=== PATIENT | female | born 1980 ===

== ENCOUNTER 2025-03-09 20:05 | Emergency (ER) | payer OTHER, SELFPAY ==
[2025-03-09 20:12] VITALS: BP 153/94; PULSE 103; RESP 20; TEMP 35.9; O2SAT 98
[2025-03-09 20:16] VITALS: BP 153/94; PULSE 103; RESP 20; TEMP 35.9; O2SAT 98
--- NOTE | 2025-03-09 20:30 | DI.RAD_ITS ---
Exam(s) XR HAND LT COMPLETE EXAM: XR HAND LT COMPLETE CLINICAL HISTORY: dog bites. TECHNIQUE: 2D digital imaging was performed of the left hand. Three views were obtained. AP, lateral and oblique views were obtained. COMPARISON: No exams were available for comparison FINDINGS: BONES: No acute fracture is present. No bony destructive lesion is seen. JOINTS: No dislocation present. SOFT TISSUE: There are no radiopaque foreign bodies. There is soft tissue laceration between the 1st and 2nd metacarpals. There is a small amount of subcutaneous gas in this region. IMPRESSION: 1. No acute fracture, dislocation or radiopaque foreign body. 2. The preliminary [facility] report was reviewed. DATA REPOSITORY: RADIATION DOSE DELIVERED:
--- NOTE | 2025-03-09 20:30 | DI.RAD_ITS ---
Exam(s) XR HAND RT COMPLETE EXAM: XR HAND RT COMPLETE CLINICAL HISTORY: dog bites. TECHNIQUE: 2D digital imaging was performed of the right hand. Three images were obtained. AP, lateral and oblique views were obtained. COMPARISON: CR,XR XR HAND LT COMPLETE from 03/09/2025 FINDINGS: BONES: No acute fracture is present. No bony destructive lesion is seen. Note is made of an amputation of the distal aspect of the distal phalanx of the 2nd finger. JOINTS: No dislocation present. SOFT TISSUE: No radiopaque foreign bodies are seen. IMPRESSION: 1. There is an amputation of this distal aspect of the distal phalanx of the 2nd finger. 2. There is no other osseous abnormality. 3. There are no radiopaque foreign bodies. 4. The preliminary [facility] report was reviewed. DATA REPOSITORY: RADIATION DOSE DELIVERED:
--- NOTE | 2025-03-09 22:11 | DI.[facility]_ITS ---
PROCEDURE INFORMATION: Exam: XR Left Hand Exam date and time: 03/09/2025 8:49 PM Age: 44 years old Clinical indication: Injury or trauma; Other: Animal bite; Bilateral; Injury date: 03/09/25; Injury details: Dog bite to hands TECHNIQUE: Imaging protocol: Radiologic exam of the left hand. Views: 3 or more views. COMPARISON: No relevant prior studies available. FINDINGS: Bones/joints: No acute fracture or dislocation. No suspicious bony lesions. Soft tissues: Subcutaneous gas is present within the soft tissues overlying the thenar eminence. Soft tissue swelling is noted at the 2nd digit. No unexpected radiopaque foreign bodies. IMPRESSION: Subcutaneous gas and soft tissue swelling without underlying bony abnormality or unexpected radiopaque foreign body. Dictated and Authenticated by: Lu Dorsey MD. Orderin Leonarda Hyde MD
--- NOTE | 2025-03-09 22:12 | DI.[facility]_ITS ---
PROCEDURE INFORMATION: Exam: XR Right Hand Exam date and time: 03/09/2025 8:52 PM Age: 44 years old Clinical indication: Injury or trauma; Bilateral; Injury date: 03/09/25; Injury details: Dog bites on hand, 2nd finger tip TECHNIQUE: Imaging protocol: Radiologic exam of the right hand. Views: 3 or more views. COMPARISON: No relevant prior studies available. FINDINGS: Bones/joints: There is amputation of the distal aspect of the 2nd digit including the distal half of the distal 2nd phalanx. No other bony abnormalities. Soft tissues: No unexpected radiopaque foreign bodies. IMPRESSION: Amputation of the distal aspect of the 2nd digit as above. Dictated and Authenticated by: Lu Dorsey MD. Orderin Leonarda Hyde MD
[2025-03-09] MEDS: Rabies vaccine (PCEC)/PF 2.5 UNITS/ML VIAL IM (22:27)
[2025-03-09] MEDS: Rabies Immune Globulin 300 UNIT/ML VIAL 2250 UNIT IM (22:27)
[2025-03-09] MEDS: Amoxicillin 875/Clav. 125 TAB PO (22:27)
[2025-03-09] MEDS: Bupivacaine 0.5% Pres-Free 30 ML VIAL IJ (22:27)
--- NOTE | 2025-03-09 23:48 | ED.GENADUL_ITS ---
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, Dog bite, Dog bite of multiple sites Primary Care Provider: [place],Local ED Provider: Andrew Gregory Home Meds and New Rx's Prescriptions: New amoxicillin-pot clavulanate 875-125 mg tablet 1 tab PO BID Qty: 20 0RF ibuprofen 600 mg tablet 600 mg PO Q8H PRNQty: 15 0RF amoxicillin-pot clavulanate 875-125 mg tablet 1 tab PO BID 10 Days Qty: 20 0RF Continued metformin 750 mg tablet extended release 24 hr 750 mg PO DAILY losartan 50 mg tablet 50 mg PO DAILY simvastatin 20 mg tablet 20 mg PO DAILY norgestimate-ethinyl estradiol 0.18/0.215/0.25 mg-0.035mg (28) tablet 1 tab PO DAILY Rybelsus 14 mg tablet 14 mg PO DAILY Discharge Instructions Instructions: Animal and human bites, Amputation of the Finger or Fingertip (DC) Additional Instructions: Take the antibiotic every 12 hours as prescribed You received a tetanus vaccine of rabies vaccine today your next rabies vaccine will be on 12 March, 16 March, and 23 March, these will be scheduled through our infusion clinic Wash with soap and water. Please change the bandaging every 24 hours. You will need to follow-up with hand surgery. We we will request [facility] reach out to you for orthopedic hand follow-up. If you notice any worsening of your symptoms, or any new symptoms such as redness, drainage, vomiting, diarrhea, fever, chills, shortness of breath, chest pain, numbness, weakness, or fainting , please return immediately to the emergency department for reevaluation. Please follow up with your primary care provider as soon as possible for reassessment and reevaluation. As always, it was a pleasure participating in your medical care today. Stand Alone Forms: Portal Information Discharge Data Discharge Date/Time-TO BE ENTERED AT DEPARTURE: 03/10/25 01:49 HPI General Date/Time Provider Initiated Documentation: 03/09/25 20:24 . HPI Narrative: This 44-year-old female presents with report of bilateral hand injuries right greater than left after breaking up a dog fight. She states that a dog attacked her dog while she was walking. The dog bit the tip off of her right finger with multiple puncture wounds to bilateral hands. This happened just prior to ar rival. Unsure as to last tetanus shot. Unsure as to the vaccine history of the offending dog. There was no odor in the area. Related Data Home Medications ?Medication ?Instructions ?Recorded ?Confirmed amoxicillin 875 mg-potassium 1 tab PO BID #20 tabs clavulanate 125 mg tablet ibuprofen 600 mg tablet 600 mg PO Q8H PRN #15 tabs 1 05/10/24 losartan 50 mg tablet 50 mg PO DAILY 03/09/2502/18 metformin 750 mg tablet,extended 750 mg PO DAILY 03/0903/09/25 release 24 hr norgestimate-ethinyl estradiol 1 tab PO DAILY 03/09/25 03/09/25 0.18mg/0.215mg/0.25mg-0.035mg(28)tablet semaglutide 14 mg tablet (Rybelsus) 14 mg PO DAILY 03/09/25 simvastatin 20 mg tablet 20 mg PO DAILY 03/09/2502/18 amoxicillin 875 mg-potassium 1 tab PO BID 10 days #20 tabs 03/10/25 clavulanate 125 mg tablet Previous Rx's ?Medication ?Instructions ?Recorded amoxicillin 875 mg-potassium 1 tab PO BID #20 tabs clavulanate 125 mg tablet ibuprofen 600 mg tablet 600 mg PO Q8H PRN #15 tabs 1 05/10/24 amoxicillin 875 mg-potassium 1 tab PO BID 10 days #20 tabs 03/10/25 clavulanate 125 mg tablet Allergies Allergy/AdvReac Type Severity Reaction Status Date / Time No Known Allergies Allergy Unverified 03/09/25 20:37 General Stated Complaint: AnimalBite SAY: 3 Exam Narrative Exam Narrative: Alert and oriented 44-year-old female with amputation to right second digit approximately 5 mm distal to the DIP joint distal tip of phalanx visualized, macerated tissue sensation intact proximally range of motion intact with bleeding multiple puncture wounds, right hand with puncture wound to the webspace between the 1st and 2nd digits multiple small puncture wounds sensation intact and strength intact Course Vital Signs Vital signs: Vital Signs Temperature 35.9 C L 03/09/25 20:12 Pulse 103 H 03/09/25 20:12 Respiratory Rate 20 03/09/25 20:12 Blood Pressure 153/94 H 03/09/25 20:12 Pulse Oximetry 98 03/09/25 20:12 Temperature 35.9 C L 03/09/25 20:16 Temperature Source Temporal Artery Scan 03/09/25 20:16 Pulse 103 H 03/09/25 20:16 Respiratory Rate 20 03/09/25 20:16 Blood Pressure 153/94 H 03/09/25 20:16 Blood Pressure Position Supine 03/09/25 20:16 Pulse Oximetry 98 03/09/25 20:16 Oxygen Delivery Method Room Air 03/09/25 20:16 Oxygen Flow Rate 0 03/09/25 20:16 Pain Level 5 03/09/25 20:16 Procedure Laceration Laceration 1: Date of Procedure: 03/09/25 Medical Decision Making results: xray with distal amputation, of right hand, no additional findings assessment and plan: pt with dog bite to right 2nd digit with ampuation. left hand with several bite wounds, but no significant tenderness and strength and sensation intact. pt received augmentin, rabies vaccine and immunoglobulin. tetanus was updated. i spoke with Dr Parekh, ortho on-call for us who recommends chatting with dedicated hand surgery at [facility]. I paged hand surgery approx imately 3 hours later I still have not returned the call patient became very frustrated and requested to leave. She was given Augmentin rabies vaccine and the rabies vaccine schedule to return on days 3, 7, and 14. The right second digit was injected with 3 cc of 0.5% Marcaine, then irrigated and cleaned the wound with soap and water and injected 1 cc immunoglobulin around the bite site. Care was transitioned to Dr. Gregory pending [facility] hand surgery return call. Wounds at all been cleansed patient did receive Augmentin and she is pending disposition at this time given open fracture to DIP joint with amputation with high risk of infection with dog bite. 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
[2025-03-10] MEDS: Ibuprofen 600 MG TAB PO (00:06)
[2025-03-10] MEDS: Diph,Pertuss(Acell),Tet Vac/Pf 0.5 ML SYR IM (00:07)
[2025-03-10] MEDS: Amox. 875/Clav. 125, 2 TABS/BTL 1 TAB PO (01:45)
--- NOTE | 2025-03-10 02:30 | ED.PROG_ITS ---
Date of service: 03/10/25 Time of Service: 02:30 Medical Decision Making 2 AM Patient was signed out pending callback from [facility]. Patient was here for 5 hours, and we are still pending callback. We did contact the transfer center and they stated that orthopedics is currently in a surgery. Patient was unwilling to wait any longer and elected to leave. We discussed with her the importance of waiting for [facility] as their recommendations could change the type of dressing that was used, and the follow-up. Patient still elected to leave understanding this, and the potential impact it could have on her finger. Her finger was bandaged with nonadhesive petroleum based gauze on the tip, followed by dry gauze bandaging surrounding that. Patient was given a prescription for Augmentin, and it was sent to her pharmacy on file. Still pending [facility] callback. 8:45 AM Patient refused to stay any longer secondary to the extreme length of time for the call back. She was bandaged, petroleum based gauze was placed on the exposed hip, and dry gauze was placed surrounding it. She had a prescription for Augmentin. I received a callback from [facility] orthopedics at 8:40 AM. Reanna Oliver [employer] states that hand has not yet been contacted, as plastics is on for Ortho. They state they will call back with hand specialist. Case will be signed out to my colleague Dr. Rojas for follow-up and callback. I did make sure [facility] has the phone number for the patient to contact her for close outpatient follow-up. 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, Dog bite, Dog bite of multiple sites Primary Care Provider: [place],Local ED Provider: Andrew Gregory Home Meds and New Rx's Prescriptions: New amoxicillin-pot clavulanate 875-125 mg tablet 1 tab PO BID Qty: 20 0RF ibuprofen 600 mg tablet 600 mg PO Q8H PRNQty: 15 0RF amoxicillin-pot clavulanate 875-125 mg tablet 1 tab PO BID 10 Days Qty: 20 0RF Continued metformin 750 mg tablet extended release 24 hr 750 mg PO DAILY losartan 50 mg tablet 50 mg PO DAILY simvastatin 20 mg tablet 20 mg PO DAILY norgestimate-ethinyl estradiol 0.18/0.215/0.25 mg-0.035mg (28) tablet 1 tab PO DAILY Rybelsus 14 mg tablet 14 mg PO DAILY Discharge Instructions Instructions: Animal and human bites, Amputation of the Finger or Fingertip (DC) Additional Instructions: Take the antibiotic every 12 hours as prescribed You received a tetanus vaccine of rabies vaccine today your next rabies vaccine will be on 12 March, 16 March, and 23 March, these will be scheduled through our infusion clinic Wash with soap and water. Please change the bandaging every 24 hours. You will need to follow-up with hand surgery. We we will request [facility] reach out to you for orthopedic hand follow-up. If you notice any worsening of your symptoms, or any new symptoms such as redness, drainage, vomiting, diarrhea, fever, chills, shortness of breath, chest pain, numbness, weakness, or fainting , please return immediately to the emergency department for reevaluation. Please follow up with your primary care provider as soon as possible for reassessment and reevaluation. As always, it was a pleasure participating in your medical care today. Stand Alone Forms: Portal Information Discharge Data Discharge Date/Time-TO BE ENTERED AT DEPARTURE: 03/10/25 01:49
--- NOTE | 2025-03-10 09:56 | ED.FU.B_ITS ---
Date of service: 03/10/25 Time of Service: 09:57 Follow Up Plan: I received call back from [facility], Reanna Oliver, nurse practitioner of plastic/hand team. Discussed ED presentation and course. She recommends patient be transferred for assessment. I let her know that patient is not currently in the emergency department and that she had left last night while awaiting consultation. Nurse practitioner Benito feels the patient should be reevaluated in the emergency department at [facility]. I called Ms. Vidales and discussed recommendation. I recommended she return to the emergency department now and she noted she planned to go directly to [facility].
== END 2025-03-10 01:49 | disposition home or self-care (01) ==
PROVIDERS: Emergency Provider Student in an Organized Health Care Education/Training Program
DX: S68.610A Complete traumatic transphalangeal amputation of right index finger, initial encounter (principal); S61.431A Puncture wound without foreign body of right hand, initial encounter; S61.432A Puncture wound without foreign body of left hand, initial encounter; W54.0XXA Bitten by dog, initial encounter; Z23 Encounter for immunization; Z20.3 Contact with and (suspected) exposure to rabies; Z29.14 Encounter for prophylactic rabies immune globulin
CPT/HCPCS: 00123; 90375; 90471; 90472; 90715; 96372; 99285; 73130; 90675; J0665

== ENCOUNTER 2025-03-12 00:29 | Outpatient (RCR) | payer OTHER, SELFPAY ==
[2025-03-12] MEDS: Rabies vaccine (PCEC)/PF 2.5 UNITS/ML VIAL IM (10:16)
[2025-03-16 14:08] VITALS: BP 132/85; PULSE 87; RESP 16; TEMP 36.4; O2SAT 98
[2025-03-16] MEDS: Rabies vaccine (PCEC)/PF 2.5 UNITS/ML VIAL IM (14:09)
== END 2025-03-19 23:59 | disposition home or self-care (01) ==
LOC: INF 00:29
PROVIDERS: Visit Provider Physician Assistant
DX: Z20.3 Contact with and (suspected) exposure to rabies (principal); Z29.14 Encounter for prophylactic rabies immune globulin
CPT/HCPCS: 90471; 96372; 90675